=== PATIENT | male | born 1970 | race African-American/Black ===

== ENCOUNTER → 2022-03-20 12:02 | Outpatient (CLI) | payer OTHER, SELFPAY ==
[2022-03-20 14:51] LABS: COVID19 -Nasal RAPID Negative (Negative)
== END ==
PROVIDERS: Referring Provider Internal Medicine; Visit Provider Internal Medicine
DX: Z20.822 Contact with and (suspected) exposure to COVID-19 (principal)
CPT/HCPCS: 87635; C9803

== ENCOUNTER → 2022-03-21 10:49 | Outpatient (CLI) | payer OTHER, SELFPAY ==
--- NOTE | 2022-03-21 | DI.RAD.S_ITS ---
PROCEDURE: XR CHEST 2V INDICATIONS: ASTHMA TECHNIQUE: 2 views of the chest were acquired. COMPARISON: None. FINDINGS: Surgical changes and devices: None. Lungs and pleura: No consolidation. Prominent perihilar markings. No pleural effusions or pneumothorax. Mediastinum: Mediastinal contours are normal. Heart size is normal. Bones and chest wall: No suspicious bony abnormalities. Soft tissues appear unremarkable. IMPRESSION: Prominent perihilar markings. This could be seen in the setting of reactive airways disease or atypical pneumonia. Dictated by: Piero Sharpe M.D. on 03/21/2022 at 13:16 Approved by: Piero Sharpe M.D. on 03/21/2022 at 13:18
--- NOTE | 2022-03-27 08:18 | PM.PFT.1 ---
Pulmonary Function Test Referral & Results Date Patient Seen: 03/21/22 Requesting provider: Daniel Israel Results: The spirometry demonstrates an FVC of 4.28 L which is 81% of predicted. The FEV1 was measured at 3.6 year L which is 88% of predicted. The FEV1/FVC ratio was 84 which is 107% of predicted. Following the administration of bronchodilator there was no appreciable change. Interpretation: This study demonstrates probably normal spirometry. There may be very minimal reduction in FEV1 although FEV1/ratio is preserved but this might represent very minimal obstructive lung disease. In the and I would probably interpret this as normal forced spirometry Clinical correlation suggested
== END ==
PROVIDERS: Referring Provider Chiropractor; Visit Provider Chiropractor
DX: J45.998 Other asthma (principal)
CPT/HCPCS: 71046; 94060